=== PATIENT | female | born 1995 | race Caucasian/White ===

== ENCOUNTER 2019-02-26 01:26 | Emergency (ER) | payer BC, OTHER ==
--- NOTE | 2019-02-26 02:16 | EDM.PDOC ---
ED HPI GENERAL MEDICAL PROBLEM - General Chief Complaint: Upper Extremity Injury/Pain Stated Complaint: Right Thumb injury Time Seen by Provider: 02/26/19 01:52 Source of Information: Reports: Patient History Limitations: Reports: No Limitations - History of Present Illness INITIAL COMMENTS - FREE TEXT/NARRATIVE: Hit right thumb with hammer pain in tip of thumb Increased pain with movement Onset: Today, Sudden Location: Reports: Upper Extremity, Right Quality: Reports: Pressure, Throbbing Severity: Moderate Worsens with: Reports: Movement Context: Reports: Trauma Right Finger-Thumb Pain Score (Numeric/FACES): 6 - Related Data Allergies Allergy/AdvReac Type Severity Reaction Status Date / Time amoxicillin Allergy Rash Verified 02/26/19 01:30 Penicillins Allergy Hives Verified 02/26/19 01:29 Sulfa (Sulfonamide Allergy Rash Verified 02/26/19 01:30 Antibiotics) Home Meds: Home Meds Escitalopram Oxalate 20 mg PO DAILY 02/26/19 [History] Past Medical History - Past Surgical History HEENT Surgical History: Reports: Oral Surgery Social & Family History - Tobacco Use Smoking Status *Q: Never Smoker Second Hand Smoke Exposure: No - Caffeine Use Caffeine Use: Reports: Coffee, Soda - Recreational Drug Use Recreational Drug Use: No Review of Systems - Review of Systems Review Of Systems: See Below Musculoskeletal: Reports: Other (Right thumb pain and swelling) ED EXAM, GENERAL - Physical Exam Exam: See Below Exam Limited By: No Limitations Extremities: Other (Right thumb with mild swelling Minimal blood under nail Tender with palpation) Course - Vital Signs Last Recorded V/S: Last Vital Signs Temp 36.9 C 02/26/19 01:42 Pulse 83 02/26/19 01:42 Resp 15 02/26/19 01:42 BP 128/65 02/26/19 01:42 Pulse Ox 100 02/26/19 01:42 - Orders/Labs/Meds Orders: Active Orders 24 hr Category Date Time Status Fingers Thumb Rt F5 [CR] Stat Exams 02/26/19 01:38 Ordered Labs: Laboratory Tests 02/26/19 Range/Units 01:50 HCG, Qual Negative (NEGATIVE) - Radiology Interpretation Free Text/Narrative:: Xray: No acute findings Departure - Departure Time of Disposition: 02:30 Disposition: Home, Self-Care 01 Clinical Impression: Thumb contusion Qualifiers: Encounter type: initial encounter Damage to nail status: without damage Laterality: right Qualified Code(s): S60.011A - Contusion of right thumb without damage to nail, initial encounter - Discharge Information *PRESCRIPTION DRUG MONITORING PROGRAM REVIEWED*: Not Applicable *COPY OF PRESCRIPTION DRUG MONITORING REPORT IN PATIENT TIM: Not Applicable Instructions: Contusion, [id number] Referrals: Mabel Pratt PA-C [Primary Care Provider] - Additional Instructions: Ice as needed Elevate Wear splint as needed Follow up in clinic Tylenol or Motrin as needed - My Orders Last 24 Hours: My Active Orders 02/26/19 01:38 Fingers Thumb Rt F5 [CR] Stat - Assessment/Plan Last 24 Hours: My Active Orders 02/26/19 01:38 Fingers Thumb Rt F5 [CR] Stat
== END 2019-02-26 02:30 | disposition home or self-care (01) ==
LOC: LL.ED 01:26
DX: S60.011A Contusion of right thumb without damage to nail, initial encounter (principal); Z79.899 Other long term (current) drug therapy; Z88.0 Allergy status to penicillin; Z88.1 Allergy status to other antibiotic agents; Z88.2 Allergy status to sulfonamides; W27.8XXA Contact with other nonpowered hand tool, initial encounter
CPT/HCPCS: 36415; 73140-F5; 84703; 99282; 99283-25